=== PATIENT | male | born 1995 | race Caucasian/White ===

== ENCOUNTER 2018-04-10 08:06 | Emergency (ER) | payer MEDICAID ==
[~2018-04-10] VITALS: Ht 182.9 cm; Wt 73.0 kg
[2018-04-10 08:08] VITALS: BP 139/89
[2018-04-10] MEDS ORDERED: LIDOCAINE-MPF 1%, 5ML ONE (08:23)
[2018-04-10] MEDS ORDERED: ALBU1.25 NEB (08:28)
[2018-04-10] MEDS ORDERED: HYDROcodone/APAP 5/325 TABLET ONE (08:33)
[2018-04-10] MEDS ORDERED: HYDROcodone/APAP 5/325 TABLET PO ONE (09:00)
== END 2018-04-10 09:29 | disposition home or self-care (01) ==
LOC: ED 09:23
DX: K04.7 Periapical abscess without sinus (principal); F17.200 Nicotine dependence, unspecified, uncomplicated
CPT/HCPCS: 41800; 99283

== ENCOUNTER 2018-05-18 09:35 | Emergency (ER) | payer MEDICAID ==
[~2018-05-18] VITALS: Ht 193 cm; Wt 69.0 kg
[~2018-05-18 09:35] MED LIST: ALBU1.25 NEB
[2018-05-18] MEDS ORDERED: HYDROcodone/APAP 5/325 TABLET PO PRN (10:30)
[2018-05-18] MEDS ORDERED: DIPH,PERTUSS(ACELL),TET VAC/PF 0.5 ML IM-VACC ONE ×2 (10:30→10:42)
[2018-05-18] MEDS ORDERED: LIDOCAINE-MPF 1%, 5ML INFIL ONE (10:30)
[2018-05-18] MEDS ORDERED: LIDOCAINE-MPF 1%, 5ML ONE (10:41)
[2018-05-18] MEDS ORDERED: HYDROcodone/APAP 5/325 TABLET ONE (10:41)
[2018-05-18 11:22] VITALS: BP 118/73
== END 2018-05-18 11:25 | disposition home or self-care (01) ==
LOC: ED 10:27
DX: S60.222A Contusion of left hand, initial encounter (principal); M25.532 Pain in left wrist; F17.210 Nicotine dependence, cigarettes, uncomplicated; W22.09XA Striking against other stationary object, initial encounter; Y93.89 Activity, other specified; Y92.89 Other specified places as the place of occurrence of the external cause; Y99.8 Other external cause status
CPT/HCPCS: 10060; 90471; 90715